=== PATIENT | male | born 1950 ===

== ENCOUNTER 2018-06-16 09:07 | Inpatient (IN) | payer MEDICARE ==
--- NOTE | 2018-06-16 09:22 | ED PDOC ---
Arrival/HPI - General Chief Complaint: Chest Pain Time Seen by Provider: 06/16/18 09:15 Historian: Patient - History of Present Illness Narrative History of Present Illness (Text): 06/16/18 09:17 68 year old male, with a past medical history that includes COPD and hypertension, presents to the emergency department with chest pain, since an hour prior. 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 Patient states pain felt like pressure , and that he also felt shortness of breath. Patient also states he felt similar symptoms about 2-3 days prior, but were alleviated by sitting down. Patient also states he feels a slight headache associated with this pain. Patient denies any fever, chills, dizziness, cough, abdominal pain, nausea, vomiting, diarrhea, back pain, neck pain, urinary/bowel changes, or any other complaint. PMD: Dr. Mason Steele Time/Duration: Prior to Arrival Symptom Onset: Sudden Symptom Course: Unchanged Quality: Pressure Activities at Onset: Light Context: Sliver Cutter Family/Social History Family/Social History: No Known Family HX Allergies/Home Meds Allergies/Adverse Reactions: Allergies No Known Allergies Allergy (Verified 06/16/18 12:20) Home Medications: Home Meds Medication Instructions Recorded Confirmed Albuterol/Ipratropium [Duoneb 3 1 vial IH QID 06/16/18 06/16/18 mg/0.5 mg (3 ml) UD] Fluticasone/Salmeterol 100/50 1 puff IH DAILY 06/16/18 06/16/18 [Advair Diskus 100/50] Fluticasone/Vilanterol [Breo 1 puff IH DAILY 06/16/18 06/16/18 Ellipta 100-25 Mcg INH] Montelukast [Singulair] 1 tab PO DAILY 06/16/18 06/16/18 Telmisartan [Micardis] 1 tab PO DAILY 06/16/18 06/16/18 Review of Systems - Physician Review All systems were reviewed & negative as marked: Yes - Review of Systems Constitutional: Normal. absent: Fevers, Night Sweats Eyes: Normal ENT: Normal Respiratory: SOB. absent: Cough Cardiovascular: Chest Pain Gastrointestinal: Normal. absent: Abdominal Pain, Diarrhea, Nausea, Vomiting Genitourinary Male: Normal Musculoskeletal: Normal. absent: Back Pain, Neck Pain Skin: Normal Neurological: Headache. absent: Dizziness Endocrine: Normal Hemo/Lymphatic: Normal Psychiatric: Normal Physical Exam - Physical Exam Narrative Physical Exam (Text): 06/16/18 09:40 Gen: VS reviewed, alert, well developed, well nourished, nontoxic, mild distress. ENT: normal pharynx. Eye: EOMI, PERRL. Neck: no JVD, supple, no adenopathy. CV: tachycardic, regular rhythm, no rubs, no murmur, no gallops, S1, S2, pulses equal and strong. Pulm: no distress, clear to auscultation, no wheeze, no rhonchi, breath sounds equal, no rales. Abd: soft, nontender, no guarding, no rebound, no rigidity, normal bowel sounds. Ext: no edema. Skin: good color, no rash, no cyanosis. Psych: responds appropriately to questions, normal affect. Neuro: oriented x 3, CN2-12 intact grossly, motor intact, sensation intact. Vital Signs Reviewed: Yes Vital Signs Temp Pulse Resp BP Pulse Ox 06/16/18 13:08 67 06/16/18 12:34 98.3 F 78 18 131/77 97 06/16/18 10:50 90 20 121/71 96 06/16/18 09:54 129 H 114/57 L 06/16/18 09:35 129 H 17 114/57 L 96 06/16/18 09:29 98.2 F 134 H 18 114/82 96 06/16/18 09:15 98.2 F 134 H 18 114/82 96 Temperature: Afebrile Blood Pressure: Normal Pulse: Tachycardic Respiratory Rate: Normal Appearance: Positive for: Well-Appearing, Non-Toxic, Comfortable Pain Distress: None Mental Status: Positive for: Alert and Oriented X 3 Medical Decision Making ED Course and Treatment: 06/16/18 09:24 Impression: 68 year old male presents to the emergency department with chest pain. Plan: -- Reassess and disposition Progress Notes: 06/16/18 11:[address] 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 patient remained stable throughout ED course, patient to be admitted to tele on cardizem drip and heparin initiated n the ED. 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 06/16/18 11:28 - Lab Interpretations Lab Results: 06/16/18 09:19 06/16/18 09:19 Lab Results 06/16/18 09:19: TSH 3rd Generation 1.07 06/16/18 09:19: Sodium 143, Potassium 3.8, Chloride 107, Carbon Dioxide 28, Anion Gap 13, BUN 18, Creatinine 0.9, Est GFR ( Amer) > 60, Est GFR (Non- Af Amer) > 60, Random Glucose 108, Calcium 9.5, Magnesium 2.5 H, Total Bilirubin 1.2, AST 19, ALT 29, Alkaline Phosphatase 54, Troponin I < 0.01, Total Protein 6.6, Albumin 4.3, Globulin 2.3, Albumin/Globulin Ratio 1.8 06/16/18 09:19: PT 10.6, INR 0.92, APTT 28.0, D-Dimer, Quantitative < 200 06/16/18 09:19: WBC 15.1 H, RBC 5.53, Hgb 18.1 H*, Hct 49.9, MCV 90.2, MCH 32.7 , MCHC 36.3, RDW 13.7, Plt Count 238, MPV 9.2, Gran % 81.8 H, Lymph % (Auto) 12.5 L, [place] % (Auto) 5.2, Eos % (Auto) 0.4 L, Baso % (Auto) 0.1, Gran # 12.34 H , Lymph # (Auto) 1.9, [place] # (Auto) 0.8 H, Eos # (Auto) 0.1, Baso # (Auto) 0.02 - RAD Interpretation Narrative RAD Interpretations (Text): 06/16/18 10:35 Chest X-ray reviewed by radiologist, shows: No active disease Radiology Orders: 06/16/18 09:33 CHEST PORTABLE [RAD] 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 - EKG Interpretation EKG Interpretation (Text): 06/16/18 11:03 0908: atrial fib at 154 bpm, nml qrs, artifact 0909: SVT at 159 bpm, nml qrs, nml axis, inferior infarct 0930: atrial fibrillation at 132 bpm, nml qrs, nml axis, no acute sttw abnb 06/16/18 11:25 1115: sinus rhythm at 81 bpm, nml qrs, nml axis, inferior infarct, no acute sttw abn Interpreted by ED Physician: Yes - Medication Orders Current Medication Orders: Albuterol/Ipratropium (Duoneb 3 Mg/0.5 Mg (3 Ml) Ud) 3 ml IH Q6H PRN PRN Reason: Shortness of Breath Stop: 06/17/18 00:46 Aspirin (Aspirin Chewable) 81 mg PO DAILY ZAIN Last Admin: 06/16/18 12:58 Dose: 81 mg Guaifenesin (Mucinex La) 600 mg PO BID ZAIN Sodium Chloride (Sodium Chloride 0.9%) 1,000 mls @ 150 mls/hr IV .Q6H40M ZAIN Last Admin: 06/16/18 09:53 Dose: 150 mls/hr eMAR Start Stop Document 06/16/18 09:53 SRE (Rec: 06/16/18 09:54 SRE [id number]) Intravenous Solution Start Date 06/16/18 Start Time 09:45 Heparin Sodium/Sodium Chloride (Heparin 40596 Units/250ml 1/2 Normal Saline) 25 ,000 units in 250 mls @ 15.921 mls/hr IV .N70M10S PRN; Protocol; 18 UNITS/KG/HR PRN Reason: ADJUST RATE PER PROTOCOL Last Admin: 06/16/18 10:45 Dose: 15.921 mls/hr eMAR Start Stop Document 06/16/18 10:45 SRE (Rec: 06/16/18 10:45 SRE [id number]) Intravenous Solution Start Date 06/16/18 Start Time 10:45 diltiaZEM IVPB 100mg in NS (Cardizem 100mg In Ns) 100 mls @ 5 mls/hr IV .Q20H PRN; Protocol; 5 MG/HR PRN Reason: TITRATE PER MD ORDER Last Admin: 06/16/18 13:07 Dose: 5 mg/hr, 5 mls/hr eMAR Start Stop Document 06/16/18 13:07 SRE (Rec: 06/16/18 13:08 SRE [id number]) Intravenous Solution Start Date 06/16/18 Start Time 13:00 MAR Pulse Rate Document 06/16/18 13:07 SRE (Rec: 06/16/18 13:08 SRE [id number]) Pulse Rate Pulse Rate (60-90) 75 Titration Intervention Document 06/16/18 13:07 SRE (Rec: 06/16/18 13:08 SRE [id number]) Titration Intake Waste Amount 0 Container Volume 100 Titration Dosing Titration Dose 5 IV Rate 5 Intake/Decrease Started Pantoprazole Sodium (Protonix Ec Tab) 40 mg PO 0600,1600 ZAIN Discontinued Medications Adenosine (Adenosine 6 Mg/2 Ml Inj) 6 mg IVP STAT STA Stop: 06/16/18 09:33 Last Admin: 06/16/18 09:43 Dose: IVP Administration Document 06/16/18 09:43 SRE (Rec: 06/16/18 09:44 SRE [id number]) Charges for Administration # of IVP Administrations 1 Diltiazem HCl (Cardizem) 20 mg IVP STAT STA Stop: 06/16/18 09:34 Last Admin: 06/16/18 09:54 Dose: 20 mg IVP Administration Document 06/16/18 09:54 SRE (Rec: 06/16/18 09:55 SRE [id number]) Charges for Administration # of IVP Administrations 1 MAR Pulse and Blood Pressure Document 06/16/18 09:54 SRE (Rec: 06/16/18 09:55 SRE [id number]) Pulse Pulse Rate (60-90) 129 Blood Pressure Blood Pressure (100/60-150/90) 114/57 Heparin Sodium (Porcine) (Heparin) 4,000 units IV ONCE ONE PRN Reason: Protocol Stop: 06/16/18 10:34 Last Admin: 06/16/18 10:44 Dose: 4,000 units eMAR Start Stop Document 06/16/18 10:44 SRE (Rec: 06/16/18 10:45 SRE [id number]) Intravenous Solution Start Date 06/16/18 Start Time 10:45 End Date 06/16/18 End time 10:46 Total Infusion Time 1 diltiaZEM IVPB 100mg in NS (Cardizem 100mg In Ns) 100 mls @ 10 mls/hr IV .Q10H PRN; Protocol; 10 MG/HR PRN Reason: TITRATE PER MD ORDER Last Admin: 06/16/18 09:56 Dose: 5 mls/hr eMAR Start Stop Document 06/16/18 09:56 SRE (Rec: 06/16/18 09:56 SRE [id number]) Intravenous Solution Start Date 06/16/18 Start Time 09:35 Pneumococcal Polyvalent Vaccine (Pneumovax 23 Vaccine) 0.5 ml IM .ONCE ONE Stop: 06/16/18 14:52 - Scribe Statement The provider has reviewed the documentation as recorded by the Scribe John Downs All medical record entries made by the Scribe were at my direction and personally dictated by me. I have reviewed the chart and agree that the record accurately reflects my personal performance of the history, physical exam, medical decision making, and the department course for this patient. I have also personally directed, reviewed, and agree with the discharge instructions and disposition. Disposition/Present on Arrival - Present on Arrival Any Indicators Present on Arrival: No - Disposition Have Diagnosis and Disposition been Completed?: Yes Diagnosis: Atrial fibrillation Disposition: HOSPITALIZED Disposition Time: 11:24 Patient Plan: Admission Patient Problems: Current Active Problems Problem Status Onset Atrial fibrillation Acute Condition: STABLE
[2018-06-16] MEDS ORDERED: diltiaZEM IVPB 100mg in NS 100 ML IV PRN (09:34)
[2018-06-16] MEDS: diltiaZEM IVPB 100mg in NS 100 ML IV PRN ×2 (09:36→13:07)
[2018-06-16 09:43] LABS: BASO # 0.02 K/mm3 (0.0-2.0); BASO % 0.1 % (0.0-3.0); EOS # 0.1 (0.0-0.7); EOS % 0.4 % (1.5-5.0); GRAN # 12.34 (1.4-6.5); GRAN % 81.8 % (50.0-68.0); LYMPH # 1.9 (1.2-3.4); LYMPH % 12.5 % (22.0-35.0); MEAN CELL VOLUME 90.2 fl (80.0-105.0); MEAN CORPUSCULAR HEMOGLOBIN 32.7 pg (25.0-35.0); MEAN CORPUSCULAR HGB CONC 36.3 g/dl (31.0-37.0); MEAN PLATELET VOLUME 9.2 fl (7.0-11.0); MONO # 0.8 (0.1-0.6); MONO % 5.2 % (1.0-6.0); RBC 5.53 10^6/uL (3.5-6.1); RED CELL DISTRIBUTION WIDTH 13.7 % (11.5-14.5); WHITE BLOOD COUNT 15.1 10^3/ul (4.5-11.0)
[2018-06-16 09:51] LABS: HEMOGLOBIN 18.1 g/dL (14.0-18.0)
[2018-06-16 09:52] LABS: ALB/GLOB RATIO 1.8 (1.1-1.8); ALBUMIN 4.3 g/dL (3.0-4.8); ALT/SGPT 29 U/L (7-56); AST/SGOT 19 U/L (17-59); BLOOD UREA NITROGEN 18 mg/dL (7-21); CALCIUM 9.5 mg/dL (8.4-10.5); GFR AFRICAN-AMERICAN > 60; GFR NON-AFRICAN AMERICAN > 60
[2018-06-16] MEDS: Sodium Chloride 0.9% 1,000 ML IV SCH ×2 (09:53→16:25)
[2018-06-16 10:02] LABS: TROPONIN I < 0.01 ng/mL
[2018-06-16 10:10] LABS: INR 0.92; PROTHROMBIN TIME 10.6 SECONDS (9.4-12.5)
[2018-06-16 10:21] LABS: D DIMER < 200 ng/mlDDU (0-243)
--- NOTE | 2018-06-16 10:30 | RAD ---
Date of service: 06/16/2018 HISTORY: chest pain COMPARISON: No prior. FINDINGS: LUNGS: No active pulmonary disease. PLEURA: No significant pleural effusion identified, no pneumothorax apparent. CARDIOVASCULAR: Normal. OSSEOUS STRUCTURES: No significant abnormalities. VISUALIZED UPPER ABDOMEN: Normal. OTHER FINDINGS: None. IMPRESSION: No active disease.
[2018-06-16] MEDS: Heparin25000 units/250ml 1/2NS 25,000 UNITS/250 ML BAG IV PRN (10:45)
--- NOTE | 2018-06-16 12:00 | CARD ---
APPROVED REPORT Date of service: 06/16/2018 EKG Measurement Heart [id number] <Conclusion> A flutter with Variable conduction Otherwise normal ECG
--- NOTE | 2018-06-16 12:01 | CARD ---
APPROVED REPORT Date of service: 06/16/2018 EKG Measurement Heart [id number] <Conclusion> Supraventricular tachycardia Possible A flutter with 2:1 conduction Left axis deviation Inferior infarct, age undetermined Abnormal ECG
--- NOTE | 2018-06-16 12:02 | CARD ---
APPROVED REPORT Date of service: 06/16/2018 EKG Measurement Heart [id number] <Conclusion> Atrial flutter with Variable conduction 2-3:1 Inferior infarct, age undetermined Abnormal ECG
[2018-06-16] MEDS ORDERED: Albuterol-Ipratrop 3 mg / 0.5 (3 ml) UD IH PRN (12:40)
--- NOTE | 2018-06-16 12:57 | CP.PCM.HP ---
<Nile Ordoñez - Last Filed: 06/16/18 14:17> History of Present Illness - History of Present Illness History of Present Illness: Internal Medicine History and Physical for Dr. Petra Holman Nile Ordoñez PGY1 68M, with a past medical history of COPD, HTN, BPH, presents to the emergency department with non-reproducible, mid-sternal, chest pain that started 30 minutes prior to arrival. 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 Patient called his son who brought him to the hospital. Patient was examined at bedside in the emergency department. He describes the pain as pressure-like with tightness that radiated to the right arm and back of the neck. He states that lying or sitting down alleviates the pain. He does not know of any aggravating factors. He had a similar episode of chest pressure/tightness 3 days ago while walking around [employer] that resolved after he sat down. The pain lasted for approximately 30 minutes. He states the pain was worse with inspiration. Denies any heavy lifting prior to symptoms. He admits to dizziness during symptom onset. Denies fever, chills, sweating, palpitations, chest pain, headache, shortness of breath, numbness/tingling in the neck or arms, nausea, vomiting, diarrhea, constipation, blurry vision, change in vision, dysphagia. PMH: see above PSH: Appendectomy (30 years ago), TURP FH: Mother- alive, history of strok; Father- , prostate cancer Past Hospitalizations: none Social: Smoked 30 years ago for 20-25 years 10-12 cigarettes per day, socially drinks a glass of wine or beer on weekends, denies illicit drug use. Diet consists of decafeinated coffee, ham and cheese sandwiches, and rice with white meat. Patient does not exercise but is able to walk long distances without difficulty. 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 [place] ALL: NKDA Meds (checked with pharmacy): Telmisartan 50mg PO QD, Montelukast 10mg PO QD, Advair Diskus 100/50 IH QD, Duoned 3mg/0.5mg IH QID, Breo Ellipta 100-25 mcg IH QD Present on Admission - Present on Admission Any Indicators Present on Admission: No Review of Systems - Constitutional Constitutional: absent: Chills, Fever, Night Sweats, Weakness - EENT Eyes: absent: Blurred Vision, Change in Vision Ears: absent: Ear Discharge, Ear Pain Nose/Mouth/Throat: absent: Nasal Congestion, Nasal Discharge, Dysphagia, Sore Throat - Cardiovascular Cardiovascular: absent: Chest Pain, Chest Pain at Rest, Diaphoresis, Dyspnea, Leg Edema, Lightheadedness, Palpitations, Syncope - Respiratory Respiratory: Cough. absent: Dyspnea, Wheezing - Gastrointestinal Gastrointestinal: absent: Abdominal Pain, Bloating, Nausea, Vomiting - Genitourinary Genitourinary: absent: Difficulty Urinating, Dysuria - Musculoskeletal Musculoskeletal: absent: Back Pain, Neck Pain - Integumentary Integumentary: absent: Bleeding Lesions, Erythema - Neurological Neurological: absent: Confusion, Dizziness, Headaches - Endocrine Endocrine: absent: Fatigue, Palpitations Past Patient History - Infectious Disease Hx of Infectious Diseases: None - Past Social History Smoking Status: Former Smoker - CARDIAC Hx Hypertension: Yes - PULMONARY Hx Chronic Obstructive Pulmonary Disease (COPD): Yes - PSYCHIATRIC Hx Substance Use: No - SURGICAL HISTORY Hx Appendectomy: Yes (ruptured) - ANESTHESIA Hx Anesthesia Reactions: No Hx Malignant Hyperthermia: No Meds Allergies/Adverse Reactions: Allergies Allergy/AdvReac Type Severity Reaction Status Date / Time No Known Allergies Allergy Verified 06/16/18 12:20 Physical Exam - Constitutional Appears: Well, Non-toxic, No Acute Distress - Head Exam Head Exam: ATRAUMATIC, NORMAL INSPECTION, NORMOCEPHALIC - Eye Exam Eye Exam: EOMI, PERRL - ENT Exam ENT Exam: Mucous Membranes Dry - Respiratory Exam Respiratory Exam: Clear to Auscultation Bilateral, NORMAL BREATHING PATTERN. absent: Wheezes - Cardiovascular Exam Cardiovascular Exam: REGULAR RHYTHM, +S1, +S2. absent: Tachycardia, Systolic Murmur - GI/Abdominal Exam GI & Abdominal Exam: Normal Bowel Sounds, Soft. absent: Tenderness - Rectal Exam Rectal Exam: Deferred - Extremities Exam Extremities exam: Positive for: pedal pulses present. Negative for: calf tenderness, joint swelling, pedal edema - Neurological Exam Neurological exam: Alert, Oriented x3 - Psychiatric Exam Psychiatric exam: Normal Affect, Normal Mood Results - Vital Signs Recent Vital Signs: Last Vital Signs Temp 98.3 F 06/16/18 12:34 Pulse 78 06/16/18 12:34 Resp 18 06/16/18 12:34 BP 131/77 06/16/18 12:34 Pulse Ox 97 08/14/18 12:34 - Labs Result Diagrams: 06/16/18 09:19 06/16/18 09:19 Assessment & Plan - Assessment and Plan (Free Text) Assessment: 68M, PH of COPD, HTN, BPH, presents to the ED with chest pain. EKG showed new onset afib with RVR. In the ED patient started on Diltiazem drip, Heparin drip, give one dose of Adenosine, and admitted to telemetry. Plan: 1. New onset Atrial Fibrillation - Patient converted to NSR in the ED, currently on diltiazem 5mg will wean off and switch to PO as per cardiology recommendations - Started on Heparin drip - Lipid Panel wnl - TSH wnl - D-dimer negative - Aspirin 81mg - ECHO ordered - Cardiology, Dr. Will consulted, recommendations appreciated - CHADS-VASC score of 2 - HAS-BLED score of 2 2. Elevated Hemoglobin, Chronic - Patient has history of elevated hemoglobin for which he has received phlebomotomies in the past. He does not have a energy sales consultant. - Heme/Onc, Dr. Bustos consulted, recommendations appreciated 3. Leukocytosis - Patient was on prednisone for a previous COPD exacerbation, last dose today (), likely secondary to steroids - Will continue to monitor 4. History of COPD - CXR: no acute findings - Duonebs PRN - Mucinex LA 600mg BID for productive cough 5. History of Hypertension - Patient BP currently stable - Patient currently normotensive, will hold BP meds for now. Will restart home medications in the morning with holding parameters. GI: Protonix DVT: SCDs Diet: HHD Dispo: Admit to telemetry Patient seen and case discussed with Dr. River Ordoñez PGY1 - Date & Time Date: 06/16/18 Time: 12:00 <Petra Holman R - Last Filed: 06/16/18 18:27> Results - Vital Signs Recent Vital Signs: Last Vital Signs Temp 98.3 F 06/16/18 14:07 Pulse 78 06/16/18 14:07 Resp 20 06/16/18 14:07 BP 131/77 06/16/18 14:07 Pulse Ox 97 06/16/18 13:20 - Labs Result Diagrams: 06/16/18 09:19 06/16/18 09:19 Attending/Attestation - Attestation I have personally seen and examined this patient.: Yes I have fully participated in the care of the patient.: Yes I have reviewed all pertinent clinical information: Yes Notes (Text): Patient seen and examined by me at 12PM with resident. Case including HPI, physical exam, and assessment and plan discussed with resident. Agree with above with following additions/corrections. Patient is a 68-year-old male with past medical history significant for COPD, hypertension, and BPH that presents to the emergency room with chest pain. He should states that the pain started approximately 30 minutes prior to coming into the emergency room. He states that he also felt some palpitations. He was driving his truck when this occurred. He states this happened approximately 3 days ago and lasted for about 45 minutes. He states that it happened while he was at [employer] walking around and it resolved after he sat down and rested. Pain is "pressure" in nature and radiates to his right arm and back of his neck. Patient also describes the pain as a "tightness." Patient did not try any medications at home for this. Patient did have associated shortness of breath. He denies any associated nausea, vomiting, or diaphoresis. No dizziness or lightheadedness. No headaches. No dysuria. No back pain. No fevers or chills. No shortness of breath. No diarrhea or constipation. 12 point review systems reviewed by me. Please see HPI. All other systems are negative. Physical exam: General: Awake and alert sitting up in bed in no acute distress HEENT: Normocephalic atraumatic. Pupils equal reactive. No scleral icterus. Oropharynx is pink and moist, no pharyngeal erythema or exudate appreciated. Neck is supple. Hearing grossly intact. Ears and nose externally unremarkable Cardiovascular: Normal rhythm. Normal S1, S2. No murmurs, rubs, or gallops appreciated Pulmonary: Normal respiratory effort. No rhonchi, rales or wheezing appreciated. Gastrointestinal: Soft, nontender, nondistended, positive bowel sounds all 4 quadrants, no guarding. Musculoskeletal: Normal range of motion all extremities, no calf tenderness, no edema appreciated Central nervous system: AAO x 3. Cranial nerves 2-12 grossly intact. 5/5 muscle strength all extremities. Dermatologic: Skin warm and dry Assessment and plan: Patient is a 68-year-old male with past medical history significant for COPD, hypertension, and BPH that presents to the emergency room with chest pain. 1. New onset A. fib/A flutter. Patient received adenosine and Cardizem in the ED. Patient was then started on Cardizem drip in the ED with conversion back into sinus rhythm and resolution of chest pain. Patient started on heparin drip. Patient continued on Cardizem drip as patient has intermittent arrhythmia. Ideology consulted, follow-up recommendations. Patient's home Telmisartan held for now as patient is on Cardizem drip. [id number] score of 2. Follow up troponins. Follow up EKG in AM. Follow up 2d echo. Monitor on telemetry. Started on ASA. D-dimer within normal limits. 2. Chest pain. Secondary to #1. Resolved. Follow up troponins. Follow up EKG in AM. Started on ASA. Follow up 2d echo. Cardiology consulted, follow up recommendations. Monitor on telemetry. 3. Elevated hemoglobin. Per patient he has had phlebotomy for this in the past. Patient has not seen a energy sales consultant. Hematology consulted, follow-up recommendations. 4. Leukocytosis. Likely secondary to recent use of prednisone versus reactive. No current signs of infection. We'll monitor for now. 5. History of COPD. Not in acute exacerbation. Placed on nebulizer treatments as needed. Patient takes Advair and Breo-ellipta home. Not on formulary here. He should placed on Brovana and Pulmicort here. Continue home Singulair. 6. Hypertension. Home telmisartan held for now. Continue with Cardizem drip. Monitor blood pressure and add medications if needed. 7. GI/DVT prophylaxis. Protonix and heparin drip 8. Patient is a full code Case was discussed in detail with the patient regarding current diagnosis and treatment plan.
[2018-06-16 14:51] VITALS: BMI 26.4
[2018-06-16] MEDS ORDERED: Pneumococcal 23-Valent Vaccine IM ONE (14:51)
[2018-06-16] MEDS ORDERED: Pantoprazole 40 mg EC Tab PO SCH (16:00)
[2018-06-16] MEDS: guaiFENesin 600 mg ER Tab PO SCH (17:47)
[2018-06-16] MEDS ORDERED: diltiaZEM IVPB 100mg in NS 100 ML IV SCH (18:15)
[2018-06-16] MEDS: Budesonide 0.25 mg/2 ml Inhal Susp UD IH SCH (20:00)
[2018-06-16] MEDS: Arformoterol 15 mcg/2 ml Inh Sol IH SCH (20:00)
--- NOTE | 2018-06-16 21:02 | CARD ---
APPROVED REPORT Date of service: 06/16/2018 EKG Measurement Heart [id number] <Conclusion> Sinus rhythm with premature atrial complexes in a pattern of bigeminy Inferior-posterior infarct, age undetermined Abnormal ECG
[2018-06-17] MEDS: Heparin25000 units/250ml 1/2NS 25,000 UNITS/250 ML BAG IV PRN (04:09)
[2018-06-17] MEDS: Pantoprazole 40 mg EC Tab PO SCH (05:08)
[2018-06-17 06:03] LABS: BASO # 0.02 K/mm3 (0.0-2.0); BASO % 0.2 % (0.0-3.0); EOS # 0.1 (0.0-0.7); EOS % 1.2 % (1.5-5.0); GRAN # 6.67 (1.4-6.5); GRAN % 71.8 % (50.0-68.0); LYMPH # 1.9 (1.2-3.4); LYMPH % 19.9 % (22.0-35.0); MEAN CELL VOLUME 92.2 fl (80.0-105.0); MEAN CORPUSCULAR HEMOGLOBIN 31.8 pg (25.0-35.0); MEAN CORPUSCULAR HGB CONC 34.5 g/dl (31.0-37.0); MEAN PLATELET VOLUME 8.9 fl (7.0-11.0); MONO # 0.6 (0.1-0.6); MONO % 6.9 % (1.0-6.0); RBC 4.87 10^6/uL (3.5-6.1); WHITE BLOOD COUNT 9.3 10^3/ul (4.5-11.0)
[2018-06-17 06:07] LABS: HEMOGLOBIN 15.5 g/dL (14.0-18.0)
[2018-06-17 06:30] LABS: TROPONIN I < 0.01 ng/mL
[2018-06-17 06:35] LABS: ALB/GLOB RATIO 1.5 (1.1-1.8); ALBUMIN 3.3 g/dL (3.0-4.8); ALT/SGPT 29 U/L (7-56); AST/SGOT 20 U/L (17-59); BLOOD UREA NITROGEN 16 mg/dL (7-21); CALCIUM 8.6 mg/dL (8.4-10.5); GFR AFRICAN-AMERICAN > 60; GFR NON-AFRICAN AMERICAN > 60
[2018-06-17] MEDS: Arformoterol 15 mcg/2 ml Inh Sol IH SCH ×2 (08:26→19:50)
[2018-06-17] MEDS: Budesonide 0.25 mg/2 ml Inhal Susp UD IH SCH ×2 (08:26→19:50)
--- NOTE | 2018-06-17 09:55 | CARD ---
APPROVED REPORT Date of service: 06/17/2018 EKG Measurement Heart [id number] <Conclusion> Sinus bradycardia Increased R/S ratio in V1, consider early transition or posterior infarct Abnormal ECG
[2018-06-17] MEDS: diltiaZEM 180 mg/24 Hours CD Cap PO SCH (10:33)
[2018-06-17] MEDS: guaiFENesin 600 mg ER Tab PO SCH ×2 (10:33→17:49)
[2018-06-17 10:51] LABS: IRON 239 ug/dL (45-180)
[2018-06-17 11:01] LABS: % IRON SATURATION 82 % (20-55); TOTAL IRON BINDING CAPACITY 290 ug/dL (261-462)
--- NOTE | 2018-06-17 14:17 | CP.PCM.PN ---
<Nile Ordoñez - Last Filed: 06/17/18 14:13> Subjective - Date & Time of Evaluation Date of Evaluation: 06/17/18 Time of Evaluation: 07:00 - Subjective Subjective: Internal Medicine Progress Note for Dr. Petra Ordoñez PGY1 68M seen and evaluated at bedside this morning. No acute events overnight. Patient denies any chest pain or radiation to the right arm and neck. was at bedside and stated that when patient was admitted for appendectomy 30 years ago, they noticed his aorta is on the right side. He has not ambulated and is tolerating his diet. Denies fever, chills, nausea, vomiting, diarrhea, shortness of breath, dizziness, headache, chest pain, palpitations, abdominal pain, or urinary symptoms. Objective - Vital Signs/Intake and Output Vital Signs (last 24 hours): Temp Pulse Resp BP Pulse Ox 98.2 F 69 18 120/82 95 06/17/18 12:00 06/17/18 12:00 06/17/18 12:00 06/17/18 12:00 06/17/18 05:56 Intake and Output: 06/17/18 06/17/18 06:59 18:59 Intake Total 2131 Output Total 1550 Balance 581 - Medications Medications: Current Medications Apixaban (Eliquis) 5 mg PO BID [facility] PRN Reason: Protocol Arformoterol Tartrate (Brovana) 15 mcg IH [id number] [facility] Last Admin: 06/17/18 08:26 Dose: 15 mcg Budesonide (Pulmicort Respules) 0.25 mg IH [id number] [facility] Last Admin: 06/17/18 08:26 Dose: 0.25 mg Diltiazem HCl (Cardizem Cd) 180 mg PO DAILY [facility] Last Admin: 06/17/18 10:33 Dose: 180 mg Guaifenesin (Mucinex La) 600 mg PO BID [facility] Last Admin: 06/17/18 10:33 Dose: 600 mg diltiaZEM IVPB 100mg in NS (Cardizem 100mg In Ns) 100 mls @ 5 mls/hr IV .Q20H [facility] PRN Reason: 5 MG/HR Last Admin: 06/16/18 18:15 Dose: 5 mls/hr Montelukast Sodium (Singulair) 10 mg PO [facility] Last Admin: 06/16/18 21:47 Dose: 10 mg Pantoprazole Sodium (Protonix Ec Tab) 40 mg PO 0600 [facility] Last Admin: 06/17/18 05:08 Dose: 40 mg - Labs Labs: 06/17/18 05:45 06/17/18 05:45 PT 10.6 SECONDS (9.4-12.5) 06/16/18 09:19 INR 0.92 06/16/18 09:19 APTT 98.6 Seconds (25.1-36.5) H 06/17/18 10:10 - Constitutional Appears: Well, Non-toxic, No Acute Distress - Head Exam Head Exam: ATRAUMATIC, NORMAL INSPECTION, NORMOCEPHALIC - Eye Exam Eye Exam: EOMI, PERRL - ENT Exam ENT Exam: Mucous Membranes Dry - Respiratory Exam Respiratory Exam: Clear to Ausculation Bilateral, NORMAL BREATHING PATTERN. absent: Wheezes - Cardiovascular Exam Cardiovascular Exam: REGULAR RHYTHM, +S1, +S2. absent: Murmur - GI/Abdominal Exam GI & Abdominal Exam: Soft, Normal Bowel Sounds. absent: Tenderness - Neurological Exam Neurological Exam: Alert, Awake, Oriented x3 - Psychiatric Exam Psychiatric exam: Normal Affect, Normal Mood - Skin Skin Exam: Dry, Intact Assessment and Plan - Assessment and Plan (Free Text) Assessment: 68M, PH of COPD, HTN, BPH, presents to the ED with chest pain. EKG showed new onset afib with RVR. In the ED patient started on Diltiazem drip, Heparin drip, give one dose of Adenosine, and admitted to telemetry. Now off the heparin and diltiazem drips. Plan: 1. New onset Atrial Fibrillation - Patient converted to NSR in the ED - Stopped Diltiazem and Heparin drip - Started Eliquis 5mg PO BID - Started Diltiazem 180mg PO Daily - Lipid Panel wnl - TSH wnl - D-dimer negative - CHADS-VASC score of 2 - HAS-BLED score of 1 - Continue Aspirin 81mg - Pending ECHO read - Pending Stress test - Cardiology, Dr. Will consulted, recommendations appreciated 2. Elevated Hemoglobin, Chronic - Patient has history of elevated hemoglobin for which he has received phlebotomies in the past. 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 - Pending JAK2 mutation and Erythropoietin levels, can be followed up outpatient per Heme/Onc - Heme/Onc, Dr. Bustos consulted, patient will follow up with Heme/Onc in 3-4 weeks 3. Leukocytosis, resolved - Patient was on prednisone for a previous COPD exacerbation, last dose 06/16, likely secondary to steroids - Will continue to monitor 4. History of COPD - CXR: no acute findings - Started Brovana, Pulmicort, Singulair - Mucinex LA 600mg BID for productive cough 5. History of Hypertension - Patient BP currently stable - Patient currently normotensive on Diltiazem 180mg PO daily - Will hold home BP meds for now GI: Protonix DVT: SCDs Diet: HHD Patient seen and case discussed with Dr. River Ordoñez PGY1 <Petra Holman - Last Filed: 06/17/18 21:15> Objective - Vital Signs/Intake and Output Vital Signs (last 24 hours): Temp Pulse Resp BP Pulse Ox 98.4 F 80 18 127/79 95 06/17/18 18:00 06/17/18 18:00 06/17/18 18:00 06/17/18 18:00 06/17/18 05:56 Intake and Output: 06/17/18 06/18/18 18:59 06:59 Intake Total 400 Output Total 300 Balance 100 - Medications Medications: Current Medications Apixaban (Eliquis) 5 mg PO BID [facility] PRN Reason: Protocol Last Admin: 06/17/18 17:50 Dose: 5 mg Arformoterol Tartrate (Brovana) 15 mcg IH [id number] [facility] Last Admin: 06/17/18 19:50 Dose: 15 mcg Budesonide (Pulmicort Respules) 0.25 mg IH [id number] [facility] Last Admin: 06/17/18 19:50 Dose: 0.25 mg Diltiazem HCl (Cardizem Cd) 180 mg PO DAILY [facility] Last Admin: 06/17/18 10:33 Dose: 180 mg Guaifenesin (Mucinex La) 600 mg PO BID [facility] Last Admin: 06/17/18 17:49 Dose: 600 mg diltiaZEM IVPB 100mg in NS (Cardizem 100mg In Ns) 100 mls @ 5 mls/hr IV .Q20H [facility] PRN Reason: 5 MG/HR Last Admin: 06/16/18 18:15 Dose: 5 mls/hr Montelukast Sodium (Singulair) 10 mg PO HS [facility] Last Admin: 06/16/18 21:47 Dose: 10 mg Pantoprazole Sodium (Protonix Ec Tab) 40 mg PO 0600 [facility] Last Admin: 06/17/18 05:08 Dose: 40 mg - Labs Labs: 06/17/18 05:45 06/17/18 05:45 PT 10.6 SECONDS (9.4-12.5) 06/16/18 09:19 INR 0.92 06/16/18 09:19 APTT 98.6 Seconds (25.1-36.5) H 06/17/18 10:10 Attending/Attestation - Attestation I have personally seen and examined this patient.: Yes I have fully participated in the care of the patient.: Yes I have reviewed all pertinent clinical information, including history, physical exam and plan: Yes Notes (Text): Patient seen and examined by me at 10:20AM with resident. Case including HPI, physical exam, and assessment and plan discussed with resident. Agree with above with following additions/corrections. Patient states that he is feeling much better today. Chest pain resolved. Right arm pain resolved. Neck pain resolved. No nausea, vomiting, or diaphoresis. No dizziness or lightheadedness. No headaches. No dysuria. No back pain. No fevers or chills. No shortness of breath. No diarrhea or constipation. Physical exam: General: Awake and alert sitting up in bed in no acute distress HEENT: Normocephalic atraumatic. Pupils equal reactive. No scleral icterus. Oropharynx is pink and moist, no pharyngeal erythema or exudate appreciated. Neck is supple. Cardiovascular: Normal rhythm. Normal S1, S2. No murmurs, rubs, or gallops appreciated Pulmonary: Normal respiratory effort. No rhonchi, rales or wheezing appreciated. Gastrointestinal: Soft, nontender, nondistended, positive bowel sounds all 4 quadrants, no guarding. Musculoskeletal: Normal range of motion all extremities, no calf tenderness, no edema appreciated Central nervous system: AAO x 3. Cranial nerves 2-12 grossly intact. 5/5 muscle strength all extremities. Dermatologic: Skin warm and dry Assessment and plan: Patient is a 68-year-old male with past medical history significant for COPD, hypertension, and BPH that presented to the emergency room with chest pain. 1. New onset A. fib/A flutter.Now in sinus rhythm. Cardizem drip stopped. Started on PO Cardizem. Discussed case with cardiology Dr. Will and started on Eliquis 5mg PO BID per Dr. Will. [id number] score of 2. Discussed risks of Eliquis including risk of increased bleeding, including GI and brain bleeds, at length with patient and patient's at bedside. Patient agrees to take medication. Troponin within normal limits. 2d echo results pending. Patient for stress test in AM. 2. Chest pain. Secondary to #1. Resolved. Troponins within normal limits. Cardiology following, recommendations appreciated. Patient for stress test tomorrow. Continue to monitor on telemetry. 3. Elevated hemoglobin. Improved. Per patient he has had phlebotomy for this in the past. Hem/onc following, recommendations appreciated. Pending JAK2 mutation and Erythropoietin level 4. Leukocytosis. Likely secondary to recent use of prednisone versus reactive. Resolved. Continue to monitor. 5. History of COPD. Not in acute exacerbation. Continue nebulizer treatments as needed. Patient takes Advair and Breo-ellipta home. Not on formulary here. Continue Brovana and Pulmicort. Continue home Singulair. 6. Hypertension. Home telmisartan held for now. Started on PO cardizem. 7. GI/DVT prophylaxis. Protonix and Eliquis 8. Patient is a full code Case was discussed in detail with the patient, patient's at bedside, and cardiology Dr. Will regarding current diagnosis and treatment plan.
--- NOTE | 2018-06-17 14:43 | CON ---
Copied To: Misael Will MD Attending MD: Misael Will MD DATE: 06/17/2018 INDICATIONS: Palpitations, chest pain, SVT. 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 This got worse yesterday and he came to the Emergency Room where he was found to have an SVT, probably atrial flutter with 2:1 conduction. He was treated in the Emergency Room with multiple medications including IV Cardizem. He ultimately converted to sinus rhythm. Today, he is on Telemetry, resting comfortably in bed. He is in sinus rhythm. The Cardizem drip has been stopped. There is no further chest pain or left arm pain. There is no shortness of breath, orthopnea, PND, syncope, presyncope, vertigo, edema, claudication, fever, chills, hemoptysis, abdominal pain, nausea, vomiting, diarrhea, constipation or melena. PAST MEDICAL HISTORY: Notable for hypertension and COPD. He is under the care of a primary care physician in [place]. He has had a prostate operation and an appendectomy. There is no history of rheumatic fever, myocardial infarction, angina, arrhythmia, stroke, TIA, diabetes or gout. SOCIAL HISTORY: He lives with his at home. 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 He has a remote history of cigarette smoking. He drinks wine and beer on weekends. He is ambulatory. FAMILY HISTORY: Not notable for heart disease. REVIEW OF SYSTEMS: A 10-point review of systems, otherwise, unremarkable except as noted above. A [place] speaking nurse assisted me in obtaining this information. PHYSICAL EXAMINATION: GENERAL: He is a well developed male lying in bed, in Telemetry, in no acute distress. VITAL SIGNS: He is in sinus rhythm at 68 beats per minute. He is afebrile. Blood pressure 118/70, respirations 19, O2 sat 95% on nasal cannula and room air. HEENT: Reveals no neck vein distention, thyromegaly, carotid bruits. Mucous membranes moist. Conjunctivae pink. NECK: Supple. LUNG: Lung craig, scattered rhonchi. HEART: Revealed a regular rhythm with normal first and second heart sounds. ABDOMEN: Soft, bowel sounds present. No mass or organomegaly, tenderness, rebound or guarding. No CVA tenderness. No palpable abdominal aortic aneurysm. EXTREMITIES: Revealed no cyanosis, clubbing or edema. NEUROLOGIC: Awake, alert and oriented. SKIN: Warm and dry. No rash or cellulitis. PSYCHIATRIC: Normal as to mood and affect. LABORATORY DATA AND IMAGING: Initial EKG showed SVT at 159 beats per minute, probably atrial flutter with 2:1 conduction. There is right ventricular conduction delay and poor R-wave progression. Chest x-ray reveals no active disease. A followup EKG demonstrates regular sinus rhythm, leftward axis, no acute changes. White count is normal. Hemoglobin 15.5, hematocrit 44.9, platelet count 182,000. PT/INR, PTT unremarkable. Subsequent PTTs consistent with heparin therapy. D-dimer was less than 200. Electrolytes, BUN and creatinine, blood sugar, calcium, magnesium, LFTs all unremarkable except for slightly elevated magnesium level. Troponins are negative x 4. TSH is normal. IMPRESSION: Chris Rolon is a 68-year-old male with chest pain and palpations, found to have supraventricular tachycardia, probably atrial flutter, this converted after treatment with intravenous Cardizem and adenosine in the Emergency Room. His chest pain resolved. There is no evidence of ischemic changes on his current EKG and his troponins have been negative. He has a history of hypertension and chronic obstructive pulmonary disease. He is under the care of a primary care doctor and lawyer criminal in [place]. At this time, I will switch to p.o. Cardizem and switch heparin to a p.o. anticoagulant. His BENJIE score is 2. I will get an echocardiogram. He should be considered for nuclear stress testing. This can be on an outpatient basis and arranged by his own physician. I will follow along with you. I will make additional recommendations based on his clinical course. Misael Will MD LORIE
--- NOTE | 2018-06-17 19:50 | CON ---
Copied To: Angus Bustos MD Attending MD: Angus Bustos MD DATE: 06/17/2018 HEMATOLOGY CONSULTATION HISTORY OF PRESENT ILLNESS: This is a 68-year-old man who is admitted for chest pains and the cardiac workup gives the history of high polycythemia, high hemoglobin. PHYSICAL EXAMINATION: SKIN: No petechiae. No bruises. HEENT: Anicteric. NODES: No palpable mass in the axillary, cervical, supraclavicular, inguinal regions. LUNGS: Clear at present. No vertebral tenderness. Patient is able to lie flat in bed comfortably. HEART: S1, S2. ABDOMEN: Shows no liver, no spleen, no tenderness, no ascites. EXTREMITIES: No edema. CENTRAL NERVOUS SYSTEM: No focal finding. LABORATORY DATA: On admission, hemoglobin was 18, repeat was 15. It is unclear, he states that many years ago, he was told that he had a high red blood count. ASSESSMENT AND PLAN: The chart states that he received phlebotomies in the past. He states they did not take out blood from him, certainly not, anytime in the last couple of years. In any event, there are two issues, one is iron deficiency that can cause an elevated red count and also JAK2 mutation. So, I ordered the iron levels and the JAK2. The JAK2 mutations will not be back at least for another week or two. I gave him my name, my address, my phone number and I told him to make appointment with me in about 3 to 4 weeks. At that time, we will have the JAK2 back and I can just now recheck his hemoglobins and I told him that the main issue here is his cardiac workup. He was in [place], but he knows where my office is and I will see him in about 3 to 4 weeks when he makes the appointment. Angus Bustos MD
[2018-06-18] MEDS: Pantoprazole 40 mg EC Tab PO SCH (06:05)
[2018-06-18 06:15] VITALS: O2SAT 94
[2018-06-18 06:56] LABS: BASO # 0.01 K/mm3 (0.0-2.0); BASO % 0.1 % (0.0-3.0); EOS # 0.1 (0.0-0.7); EOS % 1.5 % (1.5-5.0); GRAN # 7.2 (1.4-6.5); GRAN % 77.4 % (50.0-68.0); HEMOGLOBIN 16.6 g/dL (14.0-18.0); LYMPH # 1.3 (1.2-3.4); LYMPH % 13.4 % (22.0-35.0); MEAN CELL VOLUME 91.3 fl (80.0-105.0); MEAN CORPUSCULAR HEMOGLOBIN 31.9 pg (25.0-35.0); MEAN CORPUSCULAR HGB CONC 34.9 g/dl (31.0-37.0); MEAN PLATELET VOLUME 9.3 fl (7.0-11.0); MONO # 0.7 (0.1-0.6); MONO % 7.6 % (1.0-6.0); RBC 5.2 10^6/uL (3.5-6.1); RED CELL DISTRIBUTION WIDTH 13.6 % (11.5-14.5); WHITE BLOOD COUNT 9.3 10^3/ul (4.5-11.0)
[2018-06-18 07:14] LABS: ALB/GLOB RATIO 1.6 (1.1-1.8); ALBUMIN 3.5 g/dL (3.0-4.8); ALT/SGPT 31 U/L (7-56); AST/SGOT 19 U/L (17-59); BLOOD UREA NITROGEN 14 mg/dL (7-21); CALCIUM 8.8 mg/dL (8.4-10.5); GFR AFRICAN-AMERICAN > 60; GFR NON-AFRICAN AMERICAN > 60
[2018-06-18] MEDS: Arformoterol 15 mcg/2 ml Inh Sol IH SCH (07:32)
[2018-06-18] MEDS: Budesonide 0.25 mg/2 ml Inhal Susp UD IH SCH (07:32)
--- NOTE | 2018-06-18 07:54 | CP.PCM.PN ---
Subjective - Date & Time of Evaluation Date of Evaluation: 06/18/18 Time of Evaluation: 07:00 - Subjective Subjective: Stable on 2R. No CP or SOB. V/S noted. RSR. No further SVT PE: Lungs: clear Cor.: S1S2 Abd.: soft Ext.: no edema Neuro.: alert I/O = 400/300 recorded. Labs noted: CBS, CMP OK. Mg.++= 2.3 Echo: Nl LV fx. See report. Objective - Vital Signs/Intake and Output Vital Signs (last 24 hours): Temp Pulse Resp BP Pulse Ox 98.4 F 64 18 117/73 94 L 06/18/18 06:00 06/18/18 06:00 06/18/18 06:00 06/18/18 06:00 06/18/18 06:00 Intake and Output: 06/18/18 06/18/18 06:59 18:59 Intake Total 0 Balance 0 - Medications Medications: Current Medications Apixaban (Eliquis) 5 mg PO BID [facility] PRN Reason: Protocol Last Admin: 06/17/18 17:50 Dose: 5 mg Arformoterol Tartrate (Brovana) 15 mcg IH [id number] [facility] Last Admin: 06/18/18 07:32 Dose: 15 mcg Budesonide (Pulmicort Respules) 0.25 mg IH [id number] [facility] Last Admin: 06/18/18 07:32 Dose: 0.25 mg Diltiazem HCl (Cardizem Cd) 180 mg PO DAILY [facility] Last Admin: 06/17/18 10:33 Dose: 180 mg Guaifenesin (Mucinex La) 600 mg PO BID [facility] Last Admin: 06/17/18 17:49 Dose: 600 mg diltiaZEM IVPB 100mg in NS (Cardizem 100mg In Ns) 100 mls @ 5 mls/hr IV .Q20H [facility] PRN Reason: 5 MG/HR Last Admin: 06/16/18 18:15 Dose: 5 mls/hr Montelukast Sodium (Singulair) 10 mg PO HS [facility] Last Admin: 06/17/18 22:17 Dose: 10 mg Pantoprazole Sodium (Protonix Ec Tab) 40 mg PO 0600 [facility] Last Admin: 06/18/18 06:05 Dose: 40 mg - Labs Labs: 06/18/18 06:00 06/18/18 06:00 PT 10.6 SECONDS (9.4-12.5) 06/16/18 09:19 INR 0.92 06/16/18 09:19 APTT 98.6 Seconds (25.1-36.5) H 06/17/18 10:10 Assessment and Plan - Assessment and Plan (Free Text) Assessment: CP and palpitations with SVT episode, prob. A. Flutter HBP COPD H/O TURP and AP Former Smoker Plan: Nuclear stress test today. Cardizem CD 180 and Eliquis 5 BID Upon D/C: F/U with his physicians.
--- NOTE | 2018-06-18 08:01 | CARD ---
APPROVED REPORT Date of service: 06/17/2018 EXAM: Two-dimensional and M-mode echocardiogram with Doppler and color Doppler. Other Information Quality : AverageRhythm : INDICATION SVT, CP 2D DIMENSIONS Left Atrium (2D)3.8 (1.6-4.0cm)IVSd1.1 (0.7-1.1cm) LVDd4.5 (3.9-5.9cm)PWd1.1 (0.7-1.1cm) LVDs3.1 (2.5-4.0cm)FS (%) 31.0 % LVEF (%)59.0 (>50%) M-Mode DIMENSIONS Aortic Root3.60 (2.2-3.7cm)Aortic Cusp Exc.2.20 (1.5-2.0cm) Mitral Valve MV E Jjlrgmyf73.8cm/sMV E Peak Gr.3mmHgMV A Oevtwxji27.6cm/s MV E Mean Gr.2mmHgE/A ratio1.2 TDI Lateral E' Peak V9.10cm/sMedial E' Peak V5.30cm/sE/Lateral E'9.8 E/Medial E'16.8 Tricuspid Valve TR Peak [id number]/sRAP [id number] Peak Gr.27mmHg [id number] LEFT VENTRICLE The left ventricle is normal size. There is normal left ventricular wall thickness. The left ventricular function is normal. The left ventricular ejection fraction is within the normal range. There is normal LV segmental wall motion. RIGHT VENTRICLE The right ventricle is normal size. ATRIA The left atrium size is normal. The right atrium size is normal. The interatrial septum is intact with no evidence for an atrial septal defect. AORTIC VALVE The aortic valve is normal in structure. MITRAL VALVE The mitral valve is normal in structure. Mitral annular calcification is mild. Mitral regurgitation is trace. TRICUSPID VALVE The tricuspid valve is normal in structure. There is trace tricuspid regurgitation. PULMONIC VALVE The pulmonic valve is not well visualized. GREAT VESSELS The aortic root is normal in size. PERICARDIAL EFFUSION There is no pericardial effusion. <Conclusion> The left ventricle is normal size. There is normal left ventricular wall thickness. The left ventricular function is normal.
[2018-06-18] MEDS: diltiaZEM 180 mg/24 Hours CD Cap PO SCH (10:18)
[2018-06-18] MEDS: guaiFENesin 600 mg ER Tab PO SCH (10:18)
--- NOTE | 2018-06-18 11:53 | CP.PCM.DIS ---
Provider - Provider Date of Admission: 06/16/18 11:25 Attending physician: Petra Holman DO Primary care physician: Alice Martinez II, MD Consults: Cardiology - Dr. Will Heme/Onc - Dr. Bustos Time Spent in preparation of Discharge (in minutes): 100 Hospital Course - Lab Results Lab Results: Most Recent Lab Values WBC 9.3 10^3/ul (4.5-11.0) 06/18/18 06:00 RBC 5.20 10^6/uL (3.5-6.1) 06/18/18 06:00 Hgb 16.6 g/dL (14.0-18.0) 06/18/18 06:00 Hct 47.5 % (42.0-52.0) 06/18/18 06:00 MCV 91.3 fl (80.0-105.0) 06/18/18 06:00 MCH 31.9 pg (25.0-35.0) 06/18/18 06:00 MCHC 34.9 g/dl (31.0-37.0) 06/18/18 06:00 RDW 13.6 % (11.5-14.5) 06/18/18 06:00 Plt Count 186 10^3/uL (120.0-450.0) 06/18/18 06:00 MPV 9.3 fl (7.0-11.0) 06/18/18 06:00 Gran % 77.4 % (50.0-68.0) H 06/18/18 06:00 Lymph % (Auto) 13.4 % (22.0-35.0) L 06/18/18 06:00 Mobile % (Auto) 7.6 % (1.0-6.0) H 06/18/18 06:00 Eos % (Auto) 1.5 % (1.5-5.0) 06/18/18 06:00 Baso % (Auto) 0.1 % (0.0-3.0) 06/18/18 06:00 Gran # 7.20 (1.4-6.5) H 06/18/18 06:00 Lymph # (Auto) 1.3 (1.2-3.4) 06/18/18 06:00 Mobile # (Auto) 0.7 (0.1-0.6) H 06/18/18 06:00 Eos # (Auto) 0.1 (0.0-0.7) 06/18/18 06:00 Baso # (Auto) 0.01 K/mm3 (0.0-2.0) 06/18/18 06:00 PT 10.6 SECONDS (9.4-12.5) 06/16/18 09:19 INR 0.92 06/16/18 09:19 APTT 98.6 Seconds (25.1-36.5) H 06/17/18 10:10 D-Dimer, Quantitative < 200 ng/mlDDU (0-243) 06/16/18 09:19 Sodium 139 mmol/L (132-148) 06/18/18 06:00 Potassium 4.3 mmol/L (3.6-5.0) 06/18/18 06:00 Chloride 103 mmol/L (98-107) 06/18/18 06:00 Carbon Dioxide 28 mmol/L (21-33) 06/18/18 06:00 Anion Gap 11 (10-20) 06/18/18 06:00 BUN 14 mg/dL (7-21) 06/18/18 06:00 Creatinine 0.9 mg/dl (0.8-1.5) 06/18/18 06:00 Est GFR ( Amer) > 60 06/18/18 06:00 Est GFR (Non-Af Amer) > 60 06/18/18 06:00 POC Glucose (mg/dL) 101 mg/dL (65-110) 06/17/18 11:13 Random Glucose 90 mg/dL (70-110) 06/18/18 06:00 Calcium 8.8 mg/dL (8.4-10.5) 06/18/18 06:00 Phosphorus 4.0 mg/dL (2.5-4.5) 06/18/18 06:00 Magnesium 2.3 mg/dL (1.7-2.2) H 06/18/18 06:00 Iron 239 ug/dL (45-180) H 06/17/18 10:10 TIBC 290 ug/dL (261-462) 06/17/18 10:10 % Saturation 82 % (20-55) H 06/17/18 10:10 Erythropoietin 9.7 mIU/mL (2.6-18.5) 06/17/18 10:15 Ferritin 111.0 ng/mL 06/17/18 06:30 Total Bilirubin 1.1 mg/dL (0.2-1.3) 06/18/18 06:00 AST 19 U/L (17-59) 06/18/18 06:00 ALT 31 U/L (7-56) 06/18/18 06:00 Alkaline Phosphatase 45 U/L (38-126) 06/18/18 06:00 Troponin I < 0.01 ng/mL 06/17/18 05:45 Total Protein 5.8 g/dL (5.8-8.3) 06/18/18 06:00 Albumin 3.5 g/dL (3.0-4.8) 06/18/18 06:00 Globulin 2.3 gm/dL 06/18/18 06:00 Albumin/Globulin Ratio 1.6 (1.1-1.8) 06/18/18 06:00 TSH 3rd Generation 1.07 mIU/mL (0.46-4.68) 06/16/18 09:19 - Hospital Course Hospital Course: 68M, PMH of COPD, HTN, BPH, presented to the ED on 06/16/18 with non- reproducible mid-sternal, chest pain that started 30 minutes prior to arrival. 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 He described the pain as pressure like with tightness that radiated to the right arm and back of the neck. Patient admitted to dizziness, but denied fever, chills, sweating, palpitations , SOB, headache, numbness/tingling in the upper extremities, vomiting, diarrhea , constipation, blurry vision, changes in vision, or dysphagia. Three ECGs were taken within a 30-minute period while the patient was in the ER. The first revealed the patient was in atrial flutter. The second revealed presence of a supraventricular tachycardia; Adenosine was administered. The third revealed sustained atrial flutter. Diltiazem and Heparin drips were initiated after evidence of atrial fibrillation/flutter. Chest x-ray revealed no abnormalities. A final ECG was taken revealing conversion to normal sinus rhythm. Patient was admitted to telemetry. Upon evaluation, patient denied any reoccurrence of chest pain or any symptoms extending into the extremities and neck as previously described. Lipid panel, TSH, d-dimer were negative. Cardiology was consulted and an echocardiogram revealed normal right and left ventricular size , function, and wall thickness. On 06/17/18, Heparin and Diltiazem drips were discontinued. Eliquis and oral diltiazem were started. Patient was advised to hold off on taking home blood pressure medication as diltiazem was already in effect. Hematology was consulted due to patients sustained elevated hemoglobin levels that he noted was due to living in high elevations for a long period of time. Hematology proceeded to order serum iron levels, erythropoetin levels, and JAK2 mutation. Patient was made aware that JAK2 results would not be available for 2-3 weeks and to follow-up with Hematology outpatient in 3-4 weeks. Patient tolerated his diet. Home medications for COPD were continued. GI and DVT prophylaxis were administered. Patient was also advised to follow-up with cardiology in one week for a stress test. Patient is to follow up with his PMD in 3-5 days. Above is a brief summary of the patients hospital course. For a detailed encounter, please refer to medical records. - Date & Time of H&P Date of H&P: 06/16/18 Time of H&P: 12:45 Discharge Exam - Head Exam Head Exam: ATRAUMATIC, NORMAL INSPECTION, NORMOCEPHALIC - Eye Exam Eye Exam: EOMI, Normal appearance - ENT Exam ENT Exam: Mucous Membranes Dry - Respiratory Exam Respiratory Exam: Clear to PA & Lateral, NORMAL BREATHING PATTERN, UNREMARKABLE. absent: Wheezes, Respiratory Distress - Cardiovascular Exam Cardiovascular Exam: REGULAR RHYTHM, +S1, +S2. absent: Systolic Murmur - GI/Abdominal Exam GI & Abdominal Exam: Normal Bowel Sounds, Soft. absent: Tenderness - Rectal Exam Rectal Exam: Deferred - Neurological Exam Neurological exam: Alert, Oriented x3 - Psychiatric Exam Psychiatric exam: Normal Affect, Normal Mood - Skin Skin Exam: Dry, Warm Discharge Plan - Discharge Medications Prescriptions: Apixaban [Eliquis] 5 mg PO BID 30 Days #60 tab diltiaZEM CD [Cardizem CD] 180 mg PO DAILY 30 Days #30 cap - Follow Up Plan Condition: STABLE Disposition: HOME/ ROUTINE Instructions: Atrial Fibrillation (DC) Additional Instructions: Please follow up with your primary medical doctor within 3-5 days. Please follow up with cardiology, Dr. Will, June 26 for your stress test. Please follow up with hematology/oncology (blood doctor), Dr. Bustos, in 3-4 weeks to discuss your test results. Upon discharge, stop your home Telmisartan. You may continue your other home medications. Please take the new medications, Eliquis and Diltiazem, prescribed to you as instructed. Avoid Aspirin or NSAIDs (Ibuprofen, Motrin, Aleve, Advil, etc.). If symptoms reoccur, please return to the ED. Patient okay to work/drive, as long as he feels no chest discomfort. Referrals: Misael Will MD [Staff Provider] - Alice Martinez II, MD [Primary Care Provider] - Angus Bustos MD [Medical Doctor] -
[2018-06-18 12:14] VITALS: BP 126/65; RESP 20; TEMP 97.4
[2018-06-18 14:23] VITALS: PULSE 82
== END 2018-06-18 14:26 | disposition home or self-care (01) | DRG 310 ==
LOC: ED 09:07 → ERH 11:25 → 2RNO 13:34
PROVIDERS: ADMIT Hospitalist; ATTEND Hospitalist
PROC: 3E033GC Introduction of Other Therapeutic Substance into Peripheral Vein, Percutaneous Approach (ICD-10-PCS; principal; 2018-06-16)
DX: I48.92 Unspecified atrial flutter (principal); I47.1 Supraventricular tachycardia; I48.91 Unspecified atrial fibrillation; I10 Essential (primary) hypertension; N40.0 Benign prostatic hyperplasia without lower urinary tract symptoms; J44.9 Chronic obstructive pulmonary disease, unspecified; E61.1 Iron deficiency; R07.9 Chest pain, unspecified; D72.829 Elevated white blood cell count, unspecified; T38.0X5A Adverse effect of glucocorticoids and synthetic analogues, initial encounter; Z87.891 Personal history of nicotine dependence; Z80.42 Family history of malignant neoplasm of prostate